=== PATIENT | female | born 1965 | race Caucasian/White ===

== ENCOUNTER → 2017-06-20 | Day surgery (SDC) | payer OTHER ==
[~2017-06-20] MED LIST: CARAFATE1 GM PO; LEXAPRO; OMEPRAZOLE40 M1 PO; SYNTHROID; VITAMIN D35000 UNI1 PO
--- NOTE | ~2017-06-20 | OR ---
Unit #: [id number] #: [id number] Patient: NAUN JENKINS [id number] [address] [place], [place] [address] [id number] MR#: [id number] NAME: NAUN JENKINS ROOM: Date of Procedure: 06/20/2017 Admission Date: 06/20/2017 Surgeon: Mello Rosenberg III, M.D. : 1965 Attending Physician: Mello Rosenberg III, M.D. OPERATIVE REPORT PREOPERATIVE DIAGNOSES Reflux, history of Guillaume esophagitis. POSTOPERATIVE DIAGNOSES Reflux, history of Guillaume esophagitis with evidence of the lap band is too tight. PROCEDURE PERFORMED Esophagogastroduodenoscopy with biopsy. ANESTHESIA MAC. SPECIMEN Distal esophagus at 42 cm was biopsied. COMPLICATIONS None apparent. INDICATIONS FOR PROCEDURE This is a 51-year-old lady, who I saw in the office with some worsening reflux. She also has a lap band. I suspect her lap band is too tight. However, she is resistant to have fluid taken out until upper endoscopy is performed. DESCRIPTION OF PROCEDURE After consent was obtained, the patient was brought to the endoscopy suite and placed in the left lateral decubitus position. We titrated the above sedation and I passed an EGD scope easily into the esophagus under direct visualization. Distal esophagus was dilated and there was some retained food bolus in her pouch. She had a history of Guillaume esophagitis and four quadrant biopsies were taken at 42 cm. I was able to advance the scope through the opening of her band. There was no stomach pathology. Specifically, I did not see any evidence of ulcers or gastritis and no masses. The pylorus was patent and first and second portions of the duodenum appeared normal. I did retroflex the scope within the cardia and there were no other abnormalities seen. Specifically, there was no erosion of her lap band. The scope was then straightened and carefully withdrawn. I am going to have to try to convince her to come back to the office next week to have fluid taken out of her band and also follow up on her biopsies. Unit #: [id number] #: [id number] Patient: NAUN JENKINS Dictated by... Mello Rosenberg III, M.D. VCL/bertha TD: 06/20/2017 12:39 JOB #: [id number] CC: Jennifer Olivera M.D. OPERATIVE REPORT Page 1 of 1 X Mello Rosenberg III, MD PROCEDURE OPERATIVE NOTE
== END | disposition home or self-care (01) ==
LOC: COPS 10:32
DX: K21.0 Gastro-esophageal reflux disease with esophagitis (principal); K22.70 Barrett's esophagus without dysplasia; K21.9 Gastro-esophageal reflux disease without esophagitis; F17.210 Nicotine dependence, cigarettes, uncomplicated; E03.9 Hypothyroidism, unspecified; E78.5 Hyperlipidemia, unspecified; J45.909 Unspecified asthma, uncomplicated; F41.9 Anxiety disorder, unspecified; F32.9 Major depressive disorder, single episode, unspecified; Z87.440 Personal history of urinary (tract) infections; Z88.2 Allergy status to sulfonamides; Z79.899 Other long term (current) drug therapy; Z90.49 Acquired absence of other specified parts of digestive tract; Z98.84 Bariatric surgery status
CPT/HCPCS: 88305